=== PATIENT | female | born 1945 | race Caucasian/White ===

== ENCOUNTER → 2021-04-30 08:16 | Outpatient (CLI) | payer MEDICARE, OTHER, SELFPAY ==
--- NOTE | 2021-04-30 08:20 | RAD_ITS ---
Double contrast esophagogram was done. Patient swallowed barium without difficulty. There is well delineation the cervical, mid and lower esophagus without evidence of obstruction. No evidence of hiatal hernia or gastroesophageal reflux. Barium passed through the esophagus to the stomach without obstruction. RAD/Esophagus Dual Contrast IMPRESSION: Negative esophagogram. Electronically Signed: Sherly العراقي, at 16:03 EDT Tel , Service support ,
== END ==
PROVIDERS: PCP Internal Medicine; Referring Provider Internal Medicine Gastroenterology; Visit Provider Internal Medicine Gastroenterology
DX: R13.10 Dysphagia, unspecified (principal)
CPT/HCPCS: 74221

== ENCOUNTER → 2022-10-27 | Outpatient (CLI) | payer MEDICARE, OTHER, SELFPAY ==
--- NOTE | 2022-10-27 13:26 | ART_ITS ---
Reason For Study: PAOD Procedure A bilateral lower extremity continuous wave Doppler with analog waveform analysis,segmental pressures,and ankle brachial indexes with exercise. Left Segmental Pressures Left brachial= 168mmHg. Left thigh = 185mmHg. Left calf = 183mmHg. Left posterior tibial artery = 168mmHg. Left dorsalis pedis artery = 157mmHg. The left posterior tibial artery waveforms are triphasic. The left dorsalis pedis waveforms are triphasic. Right Segmental Pressures Right brachial= 166mmHg. Right thigh = 184mmHg. Right calf = 181mmHg. Right posterior tibial artery = 155mmHg. Right dorsalis pedis artery = 148mmHg. The right posterior tibial artery waveforms are triphasic. The right dorsalis pedis waveforms are triphasic. Indices The right ankle brachial index by the posterior tibial artery is 0.92. The right ankle brachial index by the dorsalis pedis is 0.88. The right ankle brachial index by the posterior tibial artery post exercise is 0.98. The left ankle brachial index by the posterior tibial artery is 1.00. The left ankle brachial index by the dorsalis pedis is 0.93. The left posterior tibial artery index post exercise is 0.97. VL/Lower Ext Art Exam w/ Exercise Interpretation Summary Abnormal right lower extremity posterior tibialis and dorsalis pedis ankle-brac hial indices of 0.92 and 0.88 with triphasic Doppler waveforms consistent with minimal disease. It i s of note that immediately after exercise the resting index of 0.92 goes to 0.98 which is cons istent with a normal response Normal left lower extremity posterior tibialis ankle-brachial index of 1 with m inimally diminished left dorsalis pedis ankle-brachial index of 0.93 with normal triphasic Doppler waveforms. Borderline abnormal left lower extremity exercise response from a resting index of 1 to im mediately after exercise at 0.97 likely not clinically significant Ordering Physician: Brian Montejo Referring Physician: BRIAN MONTEJO MD Performed By: Everardo Cadet RVT
== END | disposition home or self-care (01) ==
LOC: CVS 13:24
PROVIDERS: PCP Internal Medicine; Referring Provider Surgery; Visit Provider Surgery
DX: I77.1 Stricture of artery (principal)
CPT/HCPCS: 93924

== ENCOUNTER → 2025-02-13 | Outpatient (CLI) | payer MEDICARE, OTHER, SELFPAY ==
--- NOTE | 2025-02-10 19:54 | MRI_ITS ---
PROCEDURE: SPINE LUMBAR (ROUTINE) (MRISPL), 02/13/2025 REASON FOR EXAM: PAIN TECHNIQUE: Multisequence multiplanar MR of the lumbar spine was performed without IV contrast. COMPARISON: 01/13/2025 FINDINGS: Mild central superior/inferior endplate compressive deformities and/or Schmorl's nodes at L4 greater than T12-L1. Lumbar vertebral body heights otherwise preserved. Thoracic compression deformities on the medical fee clerk as below. Degenerative type marrow signal changes, greatest at L5-S1. Marrow edema in the RIGHT L5 pedicle, presumed stress reaction. Prominent lumbar dextroscoliosis. Conus medullaris terminates normally at the T12-L1 disc level. Crowding of the cauda equina related to the below stenoses. Diffuse disc desiccation. Additional level by level findings as below. T12-L1: Incompletely imaged T12 vertebral body on axial sequences. Diffuse disc bulging. Facet arthropathy. Mild LEFT foraminal stenosis. No significant focal spinal canal stenosis. L1-2: Prominent diffuse disc bulging with loss of disc height. Facet arthropathy. Ligamentum flavum hypertrophy. Focal uxbivvmv-uf-pozibv spinal canal stenosis with virtually complete effacement of CSF. Mild RIGHT foraminal stenosis. Moderate LEFT foraminal stenosis. Narrowing of the bilateral lateral recesses.. L2-3: Diffuse disc bulging with ndxghlas-xm-[id number] loss of disc height. Facet arthropathy. Ligamentum flavum hypertrophy. Mild RIGHT and moderate LEFT foraminal stenosis. Narrowing of the LEFT lateral recess. Moderate focal spinal canal stenosis with incomplete effacement of CSF. L3-4: Diffuse disc bulging. Facet arthropathy. Ligamentum flavum hypertrophy. Severe focal spinal canal stenosis with complete effacement of CSF.. Narrowing effacement of the RIGHT lateral recess of the LEFT lateral recess. At least moderate bilateral foraminal stenosis [id number], somewhat difficult to delineate due to oblique planes of imaging through the region. L4-5: Diffuse disc bulging with superimposed small LEFT central/paracentral disc protrusion. Mkrwyrhw-rf-ilzzop loss of disc height, particularly on the RIGHT. Ligamentum flavum hypertrophy. Facet arthropathy. Mild LEFT foraminal stenosis. Yilcdmqr-[id number]-[id number] RIGHT foraminal stenosis. Moderate focal spinal canal stenosis with incomplete effacement of CSF. Narrowing of the RIGHT and LEFT lateral recesses. L5-S1: Diffuse disc bulging slightly asymmetric to the RIGHT. Ligamentum flavum hypertrophy. Facet arthropathy. Rzxfacmh-at-lpurgb RIGHT foraminal stenosis. Mild to moderate LEFT foraminal stenosis. Mild focal spinal canal stenosis. Narrowing of the RIGHT lateral recess. Other: Cervical and thoracic spondylosis on the medical fee clerk, not well evaluated. Numerous age-indeterminate predominantly mid and upper thoracic compression deformities on the medical fee clerk, not well evaluated. Presumed chronic posttraumatic deformity of the manubrium on the medical fee clerk. Biliary dilatation partially imaged and not well evaluated. MRI/Spine Lumbar (Routine) IMPRESSION: 1. Advanced multilevel spondylosis as above. Variable spinal canal stenoses up to severe at L3-L4. Variable foraminal stenoses up to [id number]-[id number] on the RIGHT at L4-L5 and L5-S1. Multilevel lateral r ecess stenosis. 2. Marrow edema in the RIGHT L5 pedicle, presumed stress reaction. 3. Numerous age-indeterminate predominantly mid and upper thoracic compression deformities on the medical fee clerk, not well evaluated. Correlate with history and point tenderness. Additional presumed chronic postt raumatic deformity of the manubrium on biliary the medical fee clerk. 4. Dilatation, partially imaged and not well evaluated. Correlate with serum b ilirubin and consider MRI with MRCP as indicated. 5. Additional description as above. Reading Location: [id number]
== END | disposition home or self-care (01) ==
LOC: MRI 08:51
PROVIDERS: PCP Internal Medicine; Referring Provider Student in an Organized Health Care Education/Training Program; Visit Provider Student in an Organized Health Care Education/Training Program
DX: M51.16 Intervertebral disc disorders with radiculopathy, lumbar region (principal)
CPT/HCPCS: 72148